=== PATIENT | male | born 1945 | race Caucasian/White ===

== ENCOUNTER 2020-03-24 09:07 | Day surgery (SDC) | payer MEDICARE, BC, SELFPAY ==
[2020-03-24] VITALS (7 sets, daily range): BP systolic 120–169; BP diastolic 58–82; PULSE 67–98; RESP 9–18; TEMP 35.8–36.3; O2SAT 96–100; BMI 23.7
[2020-03-24] MEDS: LACTATED RINGERS 1,000 ML 200 ML IV (09:51)
--- NOTE | 2020-03-24 09:58 | PM.HP.1 ---
History of Present Illness History of Present Illness Date Patient Seen: 03/24/20 Time Patient Seen: 09:58 Chief complaint: SDC Narrative: The patient presents for colorectal sreening. The previous colonoscopy 6 years ago was remarkable for benign polyps. No personal or family history of colon cancer. On further history denies any recent gastrointestinal symptoms. No nausea, vomiting, abdominal pain, loss of appetite, unexplained weight loss, change in bowel habits, diarrhea, constipation, melena, hematochezia, or bright red blood per rectum. Patient History Medical History Personal history of colonic polyps Prostate cancer Family & Social History Social History: household members spouse Tobacco & Substance use: Smoking Status Never smoker alcohol intake current alcohol intake frequency 0-2 drinks per day Substance Use Type does not use Meds Home Medications and Allergies Home Medications Medication Instructions Recorded Confirmed Type allopurinol 100 mg PO DAILY 03/24/20 03/24/20 History amlodipine 10 mg PO DAILY 03/24/20 03/24/20 History lisinopril 40 mg PO DAILY 03/24/20 03/24/20 History omega 3-ihy-mpl-fish oil [Fish Oil] 1 cap 03/24/20 History Allergies Allergy/AdvReac Type Severity Reaction Status Date / Time Cephalosporins Allergy Severe Swelling Verified 03/24/20 09:38 of Lip/Tongue/Throat minocycline [From Minocin] Allergy Intermediate Anxiety Verified 03/24/20 09:38 Penicillins Allergy Intermediate Hives Verified 03/24/20 09:31 Review of Systems Review of Systems ROS: Yes All systems reviewed with the patient and are negative except as otherwise documented Exam Vital Signs (past 8 hours): - 03/24/20 09:41 Temperature 97.4 F L Pulse Rate 98 H Respiratory Rate 17 Blood Pressure 169/82 H Pulse Oximetry 100 Oxygen Delivery Method Room Air Narrative Exam Narrative: General-no acute distress, well nourished adult male HEENT-moist mucous membranes, no scleral icterus Neck-supple, no lymphadenopathy Chest- non labored respirations, clear to auscultation bilaterally Cardiac-regular rate no peripheral edema Abdomen-soft, nontender, non distended Extremities-warm, well perfused Neurological-alert and oriented, no focal deficits Assessment & Plan Assessment & Plan narrative: The patient requires colorectal screening and colonoscopy is recommended. Technical details were discussed. Risks, benefits, alternatives explained. Risks including but not limited to myocardial infarction, aspiration, bleeding, pain, missed lesion, incomplete examination, need for further radiographic studies, colonic perforation, and need for major abdominal surgery were discussed. All questions were answered to their satisfaction, and they are in agreement with this plan.
[2020-03-24] MEDS: fentaNYL 250 MCG/5 ML INJ IV (10:23)
[2020-03-24] MEDS: MIDAZOLAM 5 MG/5 ML VIAL IV (10:23)
--- NOTE | 2020-03-24 10:40 | PM.OP.ENDO ---
Operative Date/Time/Diagnoses Date of procedure: 03/24/20 Time of procedure: 10:40 Pre-op diagnosis: Personal history of colonic polyps Post-op diagnosis: same Procedure & Clinicians Study performed: Colonoscopy Same procedure as scheduled: Yes Indications: 74-year-old male history of present colonic polyps last colonoscopy 6 years ago here for follow-up. Surgeon: Fabian Sinha Procedure Notes Procedure in detail: Medications: Conscious sedation using 7mg IV midazolam and 250mcg IV of fentanyl The history and physical was performed/updated and the patient is ASA class is 2 The procedure was discussed in detail with the patient. Potential risks complications including infection, bleeding, missed diagnosis, perforation, need for surgery, and were explained. Their questions were answered and informed consent was obtained. Patient was brought to the procedure room and placed standard monitoring equipment. The patient's vital signs were monitored continuously throughout the entire procedure. Prior to starting time-out was performed. The patient was placed in the left lateral recumbent position. Procedural sedation was administered. Examination began with a thorough inspection of the perianal area there was no evidence of fissures, fistulae, external hemorrhoids or cutaneous malignancy. The colonoscopy scope was then placed into the anal canal and was advanced to the cecum, which was identified by the ileocecal valve, the appendiceal orifice and the confluence of the taenia. The scope was then slowly withdrawn examining colon thoroughly in all directions, irrigating it of any residual stool. No masses polyps Sigmoid diverticulosis The patient tolerated the procedure well. They will be discharged once criteria are met. The prep was of fair quality. The withdrawl time was 6 minutes. The sedation time was 33 minutes. Findings: diverticulosis Specimen(s): none sent Complications: none Impression: Normal colonoscopy Post-procedure Recommendations: Colonscopy in 10 years Disposition: same day surgery
== END 2020-03-24 11:35 | disposition home or self-care (01) ==
PROVIDERS: PCP Family Medicine; Referring Provider Surgery; Visit Provider Surgery
PROC: 0DJD8ZZ Inspection of Lower Intestinal Tract, Via Natural or Artificial Opening Endoscopic (ICD-10-PCS; CPT 45378; principal; 2020-03-24 10:00)
DX: Z12.11 Encounter for screening for malignant neoplasm of colon (principal); Z86.010 Personal history of colon polyps; K57.30 Diverticulosis of large intestine without perforation or abscess without bleeding
CPT/HCPCS: G0105; 99152; 99153; J2250; J3010